=== PATIENT | male | born 1985 | race Caucasian/White ===

== ENCOUNTER 2017-04-08 19:53 | Emergency (ER) | payer SELFPAY ==
[~2017-04-08] VITALS: Ht 172.7 cm; Wt 97.7 kg
[2017-04-08 20:12] VITALS: Ht 172.7 cm; Wt 97.7 kg
[2017-04-08] MEDS ORDERED: IBUP200C PO (23:22)
[2017-04-08 23:26] LABS: ADD SCAN DIFF NO
[2017-04-08 23:28] LABS: BASOPHILS % 0.3 % (0.0-2.0); EOSINOPHILS % 0.2 % (0.0-7.0); HEMATOCRIT 42.8 % (42.0-52.0); HEMOGLOBIN 15.5 g/dl (14.0-18.0); LYMPHOCYTES # 1.6 10^3/ul (0.8-2.9); LYMPHOCYTES % 15.7 % (15.0-51.0); MEAN CORPUSCULAR HEMOGLOBIN 31.3 pg (29.0-33.0); MEAN CORPUSCULAR HGB CONC 36.2 g/dl (32.0-37.0); MEAN CORPUSCULAR VOLUME 86.5 fl (82.0-101.0); MEAN PLATELET VOLUME 11.4 fl (7.4-10.4); MONOCYTE # 0.8 10^3/ul (0.3-0.9); MONOCYTES % 7.7 % (0.0-11.0); NEUTROPHIL # 7.6 10^3/ul (1.6-7.5); NEUTROPHILS % 75.6 % (39.0-77.0); PLATELET COUNT 189 10^3/UL (140-415); RED BLOOD COUNT 4.95 10^6/ul (4.70-6.10); RED CELL DISTRIBUTION WIDTH 13.1 % (11.5-14.5); WHITE BLOOD COUNT 10.1 10^3/ul (4.8-10.8)
[2017-04-08] MEDS ORDERED: DIPHTH/TET/ACEL PERTUSS (ADULT) 0.5 ML VIAL IM* ONE (23:30)
--- NOTE | 2017-04-08 23:38 | RADRPT ---
PROCEDURE: X-ray right ankle CLINICAL INDICATION: Pain in the distal right tibia and fibula. TECHNIQUE: 3 views of the right ankle. COMPARISON: None. FINDINGS: Question hyperflexion injury at the right ankle with small chip fracture at the anterior articular d istal tibia. Remaining osseous structures without acute fracture or dislocation. Soft tissues unre markable. IMPRESSION: 1. Question hyper flexion injury at the anterior articular tibia, with small chip fracture. 2. Otherwise, no acute fracture in the right ankle. RPTAT: [facility] Physician Naresh Date Time Electronically viewed and signed by Halina Rodrigues Physician on 04/08/2017 23:38 RS/
--- NOTE | 2017-04-08 23:39 | RADRPT ---
PROCEDURE: Right femur series CLINICAL INDICATION: Pain following trauma TECHNIQUE: AP and lateral views COMPARISON: None available FINDINGS: No evidence for acute fractures or dislocations are present. Mild soft tissue swelling is noted of the right lateral proximal thigh. No radiodense foreign bodies are present. The imaged portions of the right hip and the right knee joint are normal. IMPRESSION: 1. No acute fractures or dislocations. RPTAT: HDC .Angie Darnell MD, Date Time Electronically viewed and signed by .Angie Darnell MD, on 04/08/2017 23:38 .C/
[2017-04-08 23:51] LABS: ALBUMIN 5.1 g/dl (3.3-4.9); BILIRUBIN,INDIRECT 0.6 mg/dl (0-1.1); BILIRUBIN,TOTAL 0.6 mg/dl (0.2-1.3); CALCIUM 9.6 mg/dl (8.4-10.2); CREATININE 0.81 mg/dl (0.61-1.24); POTASSIUM 3.9 mmol/L (3.5-5.1); TOTAL PROTEIN 7.5 g/dl (6.1-8.1)
[2017-04-09 00:43] LABS: ADD UMIC NO; UR ASCORBIC ACID NEGATIVE (NEGATIVE); UR BILIRUBIN (Dip) NEGATIVE (NEGATIVE); UR BLOOD (Dip) NEGATIVE (NEGATIVE); UR CLARITY CLEAR (CLEAR); UR COLOR YELLOW (YELLOW); UR GLUCOSE (Dip) NEGATIVE (NEGATIVE); UR KETONES (Dip) NEGATIVE (NEGATIVE); UR LEUKOCYTE ESTERASE (Dip) NEGATIVE Leu/ul (NEGATIVE); UR NITRITE (Dip) NEGATIVE (NEGATIVE); UR SPECIFIC GRAVITY (Dip) 1.032 (1.003-1.030); UR TOTAL PROTEIN (Dip) NEGATIVE (NEGATIVE); UR UROBILINOGEN (Dip) NEGATIVE (NEGATIVE)
[2017-04-09] MEDS ORDERED: SOD CHLORIDE 0.9% 100 ML ONE (00:49)
[2017-04-09] MEDS ORDERED: IOHEXOL 300MG/ML 150 ML BTL ONE (00:49)
[2017-04-09] MEDS ORDERED: morphine 4 MG/ML VIAL IV STA (01:11)
--- NOTE | 2017-04-09 01:21 | RADRPT ---
PROCEDURE: CT Abdomen and Pelvis with contrast. CLINICAL INDICATION: Abdominal pain. TECHNIQUE: A CT scan of the abdomen and pelvis was performed with intravenous contrast. The patie nt was scanned following the uncomplicated intravenous administration of 100 cc of Omnipaque-300. C oronal and sagittal reformatted images were obtained from the axial source images. Images were revie wed on a high-resolution PACS workstation. CTDIvol: 19.29 mGy. DLP: 1285.01 mGy-cm. One or more of the following dose reduction techniques were used: - Automated exposure control. - Adjustment of the mA and/or kV according to patient size. - Use of iterative reconstruction technique. COMPARISON: None. FINDINGS: There are minimal atelectatic changes at the lung bases. The liver is unremarkable. The gallbladder is normal in appearance. The common bile duct is not dila justus. The spleen is not enlarged. No pancreatic lesion is identified and there is no pancreatic ducta l dilatation. The adrenal glands are unremarkable. The kidneys are normal in size. There is no perinephric fat stranding. No hydronephrosis is seen. The small and large bowel are normal in caliber. There is no bowel wall thickening. The appendix is normal. The urinary bladder is unremarkable. The pelvic organs are within normal limits. There is a moderate fat containing left inguinal hernia. No lymphadenopathy is identified. There is no ascites. No pneumoperitoneum is seen. There are no art erial calcifications. No suspicious osseous lesion is idenitified. No acute fracture or dislocation is identified. There are bilateral L5 pars defects without spondylolisthesis. IMPRESSION: 1. No evidence of traumatic injury to the abdomen and pelvis. 2. Moderate fat-containing left inguinal hernia. 3. Bilateral L5 pars defects without spondylolisthesis. RPTAT: HTAR .Anders Richards MD, Date Time Electronically viewed and signed by .Anders Richards MD, MD on 04/09/2017 01:21 .R/
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
[2017-04-09] MEDS ORDERED: IBUP-1542 PO (02:15)
[2017-04-09 02:40] VITALS: BP 139/92; PULSE 89; RESP 18
== END 2017-04-09 02:40 | disposition home or self-care (01) ==
LOC: E/R 19:53
DX: S82.301A Unspecified fracture of lower end of right tibia, initial encounter for closed fracture (principal); S81.811A Laceration without foreign body, right lower leg, initial encounter; S70.11XA Contusion of right thigh, initial encounter; V28.4XXA Motorcycle driver injured in noncollision transport accident in traffic accident, initial encounter
CPT/HCPCS: 12002; 73550; 73610; 74177; 80048; 80076; 81003; 85025; 90471; 90715; 96374; 99285; J2270; Q9967